=== PATIENT | female | born 1950 | race Caucasian/White ===

== ENCOUNTER 2020-11-21 13:20 | Emergency (ER) | payer OTHER, SELFPAY ==
[2020-11-21] VITALS (7 sets, daily range): BP systolic 137–174; BP diastolic 78–110; PULSE 61–81; RESP 14–15; TEMP 36.4; O2SAT 94–99
--- NOTE | ~2020-11-21 | CT_ITS ---
EXAMINATION: CTA brain carotid DATE: 11/21/2020 14:51 INDICATION: Dizziness. Cerebrovascular accident. TECHNIQUE: Computed tomographic angiography (CTA) of the head was performed without and with 100 mL O mnipaque-350 intravenous contrast. CTA of the neck was performed with intravenous contrast. Automated exposure control and iterative reconstruction technique were employed. The dose-length product was 1 755.60 mGy-cm. Maximum intensity projection and volume rendered 3D-reconstructions were created by maida martinez technologist on a separate workstation. COMPARISON: None. FINDINGS: HEAD CTA: There is no intracranial hemorrhage, acute infarction, or abnormal intracranial mass lesion . There is leftward displacement of septum pellucidum. The ventricles are not dilated. The orbits are normal. The paranasal sinuses are clear. The mastoid air cells are normal. The vertebral arteries ar e codominant. There is no significant stenosis of basilar artery or the posterior cerebral arteries. There is no significant stenosis of the intracranial internal carotid arteries or anterior or middle cerebral arteries. Anterior communicating artery is normal. The posterior communicating arteries are normal. There is no aneurysm. NECK CTA: There is no significant stenosis of the vertebral arteries. There is plaque in the proximal internal carotid arteries. There is 0% stenosis of the proximal right internal carotid artery relat lawrence to normal distal artery lumen diameter (NASCET criteria). There is 0% stenosis of the proximal le ft internal carotid artery relative to normal distal artery lumen diameter. There is severe cervical spondylosis. IMPRESSION: 1. Normal brain. 2. No aneurysm or significant intracranial internal stenosis. 3. 0% stenosis of the proximal internal carotid arteries relative to normal distal artery lumen diame ters (NASCET criteria). Reviewed, dictated and finalized at location A. IMPRESSION: 1. Normal brain. 2. No aneurysm or significant intracranial internal stenosis. 3. 0% stenosis of the proximal internal carotid arteries relative to normal dis leny artery lumen diameters (NASCET criteria).
--- NOTE | ~2020-11-21 | XR_ITS ---
EXAMINATION: XR chest 1V portable DATE: 11/21/2020 14:10 INDICATION: Chest pain TECHNIQUE: frontal view of the chest was obtained. COMPARISON: Chest radiograph dated 09/21/2013 FINDINGS: The lungs remain clear with no focal airspace opacities, pulmonary edema, pleural effusion or pneumot horax. The cardiomediastinal silhouette is normal. IMPRESSION: 1. No acute cardiopulmonary disease. Reviewed, dictated and finalized at location A.
--- NOTE | 2020-11-21 13:29 | ECG_ITS ---
Measurements Intervals [place] Rate: 63 P: 38 VT: 152 QRS: 7 QRSD: 87 T: 52 QT: 411 QTc: 421 Interpretive Statements SINUS RHYTHM BASELINE ARTIFACT- I, II, AVR, AVL, AVF NORMAL ECG Electronically Signed On 11-21-2020 15:50:42 CDT by Harrison Liao D.O.
--- NOTE | 2020-11-21 13:35 | ED.DIZZY ---
HPI - Dizziness General Chief Complaint: Dizziness Stated Complaint: dizziness, nausea, clammy Time Seen by Provider: 11/21/20 13:32 Source: patient Mode of arrival: ambulatory Limitations: no limitations History of Present Illness HPI Narrative: Patient is a 70-year-old female complaining of dizziness accompanied by nausea and diaphoresis that started approximately 30 minutes prior to arrival. Patient denies any speech or visual disturbance, focal weakness or numbness, chest pain, shortness of breath, abdominal pain, vomiting, diarrhea, fever or chills. Related Data Allergies Allergy/AdvReac Type Severity Reaction Status Date / Time propoxyphene Allergy Mild MAKES HER Verified 11/21/20 13:31 FEEL CRAZY codeine Allergy Unknown vomiting Verified 11/21/20 13:31 Review of Systems Review of Systems: All systems reviewed & are unremarkable except as noted in HPI and below Constitutional: Constitutional: Denies body ache(s), Denies chills, Denies excessive sweating, Denies fatigue, Denies fever(s), Denies headache(s), Denies lethargy, Denies malaise, Denies weakness and Denies weight loss Eyes: Eyes: Denies blurry vision, Denies change in vision and Denies loss of vision ENT: Denies dizziness, Denies ear discharge, Denies headache(s), Denies lip swelling, Denies epistaxis, Denies nasal congestion, Denies neck pain, Denies throat swelling and Denies tongue swelling Cardiovascular: Cardiovascular: Denies chest pain, Denies chest pain at rest, Denies chest pain with activity, Denies diaphoresis, Denies rapid heart rate, Denies edema, Denies irregular heart rhythm, Denies lightheadedness, Denies palpitations, Denies dyspnea and Denies dyspnea on exertion Respiratory: Respiratory: Denies chest congestion, Denies cough, Denies hemoptysis, Denies dyspnea and Denies dyspnea on exertion Gastrointestinal: Gastrointestinal: Denies abdominal pain, Denies melena, Denies hematochezia, Denies diarrhea, Denies nausea, Denies vomiting and Denies hematemesis Musculoskeletal: Musculoskeletal: Denies abnormal gait, Denies deformity, Denies joint swelling, Denies limited range of motion, Denies neck pain and Denies numbness Neurologic: Denies Abnormal speech present, Denies abnormal gait, Denies confusion, Denies headache(s), Denies focal weakness, Denies loss of vision, Denies numbness, Denies Other visual disturbances, Denies Sensory deficit (Neuro) and Denies weakness Psychiatric: Psychiatric: Denies confusion, Denies depression, Denies auditory hallucinations, Denies homicidal ideation and Denies suicidal ideation Endocrine: Endocrine: Denies cold intolerance, Denies excessive sweating, Denies fatigue, Denies heat intolerance and Denies palpitations Hematologic/Lymphatic: Hematologic/Lymphatic: Denies easy bleeding and Denies easy bruising Allergic/Immunologic: Allergic/Immunologic: Denies lip swelling, Denies throat swelling and Denies tongue swelling PMFSH Past Medical History Medical History Chronic bilateral low back pain without sciatica Social History Social History Smoking status: Never smoker Second hand tobacco smoke exposure: No Alcohol intake: current Drinks per week: 2 Substance use: never Substance use type: does not use Exam Const: General: cooperative, healthy appearing, comfortable, no acute distress, well developed, alert and awake; No confusion Orientation/consciousness: oriented to person, oriented to place, oriented to time, patient oriented x3 and No confusion Limitations: no limitations HENMT: Head: normal to inspection, normocephalic and atraumatic Ears: hearing grossly normal bilaterally, TM normal on the right and TM normal on the left General nose exam: Normal external nose present, Normal nares present and No nasal discharge present Face and sinus: normal facial exam Mouth: Yes Normal ora
[2020-11-21 13:52] LABS: Basophils Absolute Auto 0.1 K/mm3 (0.0-0.1); Basophils Percent Auto 0.7 % (0.2-1.2); Eosinophils Absolute Auto 0.4 K/mm3 (0-0.3); Eosinophils Percent Auto 4.1 % (0-4.4); Hematocrit 43.6 % (37.0-47.0); Hemoglobin 14.4 g/dL (12.0-15.0); Immature Granulocyte Absolute 0.08 K/mm3 (0.00-0.031); Immature Granulocyte Percent A 0.9 % (0-0.5); Lymphocytes Absolute Auto 2.34 K/mm3 (0.9-3.2); Lymphocytes Percent Auto 25.4 % (18.3-44.2); Mean Corpuscular Hemoglobin 28.9 pg (26-34); Mean Corpuscular Volume 87.6 fl (80-100); Monocytes Absolute Auto 0.8 K/mm3 (0.1-0.6); Monocytes Percent Auto 8.3 % (2.6-8.5); Neutrophils Absolute Auto 5.6 K/mm3 (1.3-6.7); Neutrophils Percent Auto 60.6 % (45.5-73.1); Platelet Count Result 295 k/mm3 (150-375); Red Blood Count 4.98 M/mm3 (4.2-5.4); Red Cell Distribution Width 13.4 % (11.5-14.5); White Blood Count 9.2 K/mm3 (4.5-10.0)
[2020-11-21 13:55] LABS: Anion Gap 10 mmol/L (8-16); Blood Urea Nitrogen 14 mg/dL (7-17); Calcium 9.5 mg/dL (8.4-10.2); Carbon Dioxide 28 mmol/L (22-30); Chloride 103 mmol/L (98-107); Estimated CRCL calculation 68 ml/min; Estimated Glomerular Filt Rate > 60; Glucose 117 mg/dL (65-105); Potassium 3.5 mmol/L (3.4-5.0); Sodium 141 mmol/L (137-145)
[2020-11-21] MEDS: SODIUM CHLORIDE 0.9% IV 1,000 ML 999 ML IV CONT (14:02)
[2020-11-21] MEDS: METOCLOPRAMIDE HCL INJ 10 MG/2 ML VIAL IV PUSH (14:02)
[2020-11-21] MEDS: MECLIZINE HCL 25 MG TABLET PO (14:02)
[2020-11-21] MEDS: FAMOTIDINE 20 MG/2 ML VIAL IV PUSH (14:02)
[2020-11-21 16:05] LABS: Troponin I < 0.012 ng/mL (0.000-0.034)
--- NOTE | 2020-11-21 16:15 | ED.DIZZY ---
HPI - Dizziness General Chief Complaint: Dizziness Stated Complaint: dizziness, nausea, clammy Time Seen by Provider: 11/21/20 13:32 Source: patient and RN notes reviewed Mode of arrival: ambulatory Limitations: no limitations History of Present Illness HPI Narrative: Patient is 70-year-old female who presents with acute onset of dizziness feeling diaphoretic and off-balance that occurred just prior to arrival came to the ER with a friend patient notes approximately 2 weeks ago had a similar occurrence patient denies any recent injury trauma illness. Patient notes on arrival that her symptoms have began to resolve patient on arrival does not appear distressed or uncomfortable Related Data Allergies Allergy/AdvReac Type Severity Reaction Status Date / Time propoxyphene Allergy Mild MAKES HER Verified 11/21/20 13:31 FEEL CRAZY codeine Allergy Unknown vomiting Verified 11/21/20 13:31 Review of Systems Review of Systems: All systems reviewed & are unremarkable except as noted in HPI and below PMFSH Past Medical History Medical History (Updated 11/21/20 @ 16:27 by Leonardo Steiner PA-C) Chronic bilateral low back pain without sciatica Social History Social History Smoking status: Never smoker Second hand tobacco smoke exposure: No Alcohol intake: current Drinks per week: 2 Substance use: never Substance use type: does not use Course Course Emergency Course: Patient in the room at this time in no distress aware of case findings treatment plan and diagnosis felt appropriate for outpatient reevaluation had resolution of symptoms has close follow-up with primary care feels comfortable to go home with this plan with ABCs and vital signs intact and stable felt appropriate for outpatient reevaluation patient was able to ambulate without symptoms or difficulty Vital Signs Vital signs: Vital Signs Temperature 97.5 F L 11/21/20 13:24 Pulse Rate 71 11/21/20 13:24 Respiratory Rate 14 11/21/20 13:24 Blood Pressure 137/84 11/21/20 13:24 Pulse Oximetry 99 11/21/20 13:24 Temperature 97.5 F L 11/21/20 13:24 Pulse Rate 81 11/21/20 15:08 Respiratory Rate 15 11/21/20 14:20 Blood Pressure 172/110 H 11/21/20 15:08 Pulse Oximetry 94 11/21/20 14:20 MDM - Dizziness MDM Narrative Medical decision making narrative: Patient's dizziness has resolved there are o focal neurological deficits on exam. Subarachnoid hemorrhage is felt to be unlikey at this time. There is no history of fever, and neck is supple without meningismus, making meningitis unlikely. No traumatic history or signs of trauma on exam. No risk factors for CVA, risk factors reviewed. Patient will be followed on an outpatient basis Lab Data Result diagrams: 11/21/20 13:35 11/21/20 13:35 Labs: Lab Results 11/21/20 11/21/20 11/21/20 Range/Units 13:35 13:35 13:35 WBC 9.2 (4.5-10.0) K/mm3 RBC 4.98 (4.2-5.4) M/mm3 Hgb 14.4 (12.0-15.0) g/dL Hct 43.6 (37.0-47.0) % MCV 87.6 (80-100) fl MCH 28.9 (26-34) pg MCHC 33.0 (32-36) g/dl RDW 13.4 (11.5-14.5) % Plt Count 295 (150-375) k/mm3 MPV 10.0 (7.4-10.4) fl Immature Gran % (Auto) 0.9 H (0-0.5) % Neut % (Auto) 60.6 (45.5-73.1) % Lymph % (Auto) 25.4 (18.3-44.2) % Polk % (Auto) 8.3 (2.6-8.5) % Eos % (Auto) 4.1 (0-4.4) % Baso % (Auto) 0.7 (0.2-1.2) % Lymph # (Auto) 2.34 (0.9-3.2) K/mm3 Polk # (Auto) 0.8 H (0.1-0.6) K/mm3 Eos # (Auto) 0.4 H (0-0.3) K/mm3 Baso # (Auto) 0.1 (0.0-0.1) K/mm3 Abs Immat Gran (auto) 0.08 H (0.00-0.031) K/mm3 Absolute Neuts (auto) 5.6 (1.3-6.7) K/mm3 Absolute Nucleated RBC 0.0 (0.0-0.012) K/mm3 Nucleated RBC % 0.0 (0.0-0.2) % Sodium 141 (137-145) mmol/L Potassium 3.5 (3.4-5.0) mmol/L Chloride 103 (98-107) mmol/L Carbon Dioxide 28 (22-30) mmol/
--- NOTE | 2020-11-21 16:15 | PC.NURSE ---
patient walked to bathroom without difficulty and in no distress.
== END 2020-11-21 16:50 | disposition home or self-care (01) ==
PROVIDERS: Emergency Provider Emergency Medicine; PCP Internal Medicine
DX: R42 Dizziness and giddiness (principal)
CPT/HCPCS: 36415; 70496; 70498; 71045; 80048; 84484; 85025; 93005; 96361; 96374; 96375; 99284; A9270; J2765; J7030; Q9967

== ENCOUNTER 2021-03-07 11:44 | Emergency (ER) | payer OTHER, SELFPAY ==
--- NOTE | 2021-03-07 12:48 | PC.NURSE ---
not in waiting area.
--- NOTE | 2021-03-07 13:34 | PC.NURSE ---
1314 was called multiple times by [employer] and this rn with no response from waiting area and no one seen in parking area.
== END 2021-03-07 13:34 | disposition left against medical advice (07) ==
PROVIDERS: Emergency Provider Internal Medicine Hematology & Oncology; PCP Internal Medicine
DX: Z53.21 Procedure and treatment not carried out due to patient leaving prior to being seen by health care provider (principal)
CPT/HCPCS: 99199

== ENCOUNTER 2021-03-07 12:36 | Outpatient (CLI) | payer OTHER, SELFPAY ==
[2021-03-07 13:28] LABS: SARS-CoV-2 RNA PCR Positive (Negative)
== END 2021-03-07 12:37 | disposition home or self-care (01) ==
PROVIDERS: PCP Internal Medicine; Visit Provider Internal Medicine
DX: U07.1 COVID-19 (principal); R68.89 Other general symptoms and signs
CPT/HCPCS: C9803; U0003; U0005

== ENCOUNTER 2021-03-08 11:45 | Outpatient (RCR) | payer OTHER, MEDICARE, SELFPAY ==
[2021-03-08] MEDS: ACETAMINOPHEN 325 MG TABLET 650 MG PO (14:15)
[2021-03-08] MEDS: FAMOTIDINE 20 MG TABLET PO (14:15)
[2021-03-08] MEDS: diphenhydrAMINE HCl CAP 25 MG CAPSULE PO (14:15)
[2021-03-08 14:25] VITALS: BP 154/70; PULSE 87; RESP 20; TEMP 36.9; O2SAT 96
[2021-03-08 15:40] VITALS: BP 142/70
== END 2021-03-08 16:30 | disposition home or self-care (01) ==
LOC: AMCINF 11:45
PROVIDERS: PCP Internal Medicine; Referring Provider Internal Medicine; Visit Provider Internal Medicine Hematology & Oncology
DX: Z23 Encounter for immunization (principal); U07.1 COVID-19
CPT/HCPCS: A9270; J7050; M0243

== ENCOUNTER → 2021-03-15 04:02 | Outpatient (CLI) | payer OTHER, SELFPAY ==
[2021-03-15 18:26] LABS: SARS-CoV-2 RNA PCR Negative
== END ==
PROVIDERS: PCP Internal Medicine; Visit Provider Internal Medicine
DX: Z20.822 Contact with and (suspected) exposure to COVID-19 (principal)
CPT/HCPCS: C9803; U0003; U0005

== ENCOUNTER 2022-01-11 10:32 | Outpatient (CLI) | payer OTHER, SELFPAY ==
--- NOTE | ~2022-01-11 | MM_ITS ---
EXAMINATION: MM screening ruddy BI w jazmin HISTORY: Screening mammogram TECHNIQUE: Craniocaudal and mediolateral oblique 3-D tomosynthesis images were obtained and synthetic 2-D images were generated. CAD analysis was submitted and interpreted. COMPARISON: 11/08/2016, 10/17/2015 bilateral screening mammogram examinations BREAST PARENCHYMAL COMPOSITION: The breasts are almost entirely fatty. FINDINGS: There is no evidence of suspicious mass, calcification, or architectural distortion to sugg est malignancy in either breast. There has been no suspicious interval change. IMPRESSION: 1. No mammographic evidence of malignancy. 2. Recommend routine screening mammography in one year. BI-RADS Category 1: Negative Reviewed, dictated and finalized at location A.
== END 2022-01-11 10:33 | disposition home or self-care (01) ==
LOC: ANHIMG 10:34
PROVIDERS: PCP Family Medicine; Visit Provider Family Medicine
DX: Z12.31 Encounter for screening mammogram for malignant neoplasm of breast (principal)
CPT/HCPCS: 77063; 77067

== ENCOUNTER 2022-01-29 10:29 | Outpatient (CLI) | payer OTHER, SELFPAY ==
[2022-01-29 11:40] LABS: Alanine Aminotransferase 20 U/L (6-35); Albumin Level 4.3 g/dL (3.5-5.1); Alkaline Phosphatase 90 U/L (38-126); Anion Gap 7 mmol/L (8-16); Aspartate Amino Transferase 27 U/L (14-36); Bilirubin,Total 0.5 mg/dL (0.2-1.3); Blood Urea Nitrogen 14 mg/dL (7-17); Calcium 9.5 mg/dL (8.4-10.2); Carbon Dioxide 33 mmol/L (22-30); Chloride 97 mmol/L (98-107); Cholesterol 184 mg/dL (0-200); Estimated Glomerular Filt Rate > 60; Glucose 110 mg/dL (65-110); HDL Direct 55 mg/dL; Potassium 4.6 mmol/L (3.4-5.0); Sodium 137 mmol/L (137-145); Triglycerides 139 mg/dL (<150)
[2022-01-29 11:51] LABS: LDL Cholesterol Direct 99 mg/dL
[2022-01-29 17:25] LABS: Thyroid Stimulating Hormone Reflex 0.869 uIU/mL (0.465-4.68)
== END 2022-01-29 10:30 | disposition home or self-care (01) ==
PROVIDERS: PCP Family Medicine; Visit Provider Family Medicine
DX: E78.5 Hyperlipidemia, unspecified (principal); E03.9 Hypothyroidism, unspecified; R73.01 Impaired fasting glucose
CPT/HCPCS: 36415; 80053; 80061; 84443

== ENCOUNTER 2022-02-14 07:46 | Outpatient (CLI) | payer OTHER, SELFPAY ==
--- NOTE | 2022-03-19 17:39 | WPDSLEEPSTUD ---
Sleep Study Date of Study: 02/14/22 Ordering Provider: Hubert Kim DO Interpreting Physician: Scarlett Herrera MD Sleep Study Type: Polysomnogram Height: 1.68 m Weight: 107.955 kg Body Mass Index: 38.4 Neck Circumference (inches): 17.5 [place]: 5 Reason for Sleep Study Fatigue, increased weight gain Sleep History Keely Barrett is a 71-year-old woman with complaints of increasing daytime fatigue, loud snoring and weight gain. She did not complete a sleep questionnaire, so the sleep history is limited. She took a 2 hour nap on the day of this study. She takes medication to help her get to sleep every night. [facility] Past Medical History Medical History (Updated 03/19/22 @ 19:03 by Scarlett Herrera MD) Chronic bilateral low back pain without sciatica DDD (degenerative disc disease), lumbosacral Fatigue Hyperlipidemia Hypothyroidism (acquired) Prediabetes Social History Social History Smoking status: Never smoker Second hand tobacco smoke exposure: No Alcohol intake: current Drinks per week: 2 Alcohol use details: mixed drinks Substance use: never Substance use type: does not use Spiritual care concerns: No Medications Home Medications Medication Instructions Recorded Confirmed Type loratadine 10 mg tablet (Claritin) 10 mg PO DAILY PRN allergy 11/21/20 02/27/22 Rx symptoms #10 tabs meclizine 25 mg tablet 25 mg PO TID PRN dizziness #7 tabs 11/21/20 05/27/21 Rx prochlorperazine maleate 10 mg 10 mg PO Q8H PRN nausea and 11/21/20 05/27/21 Rx tablet (Compazine) vomiting #7 tabs levothyroxine 125 mcg tablet 125 mcg PO DAILY #90 tabs 01/09/21 02/27/22 Rx omeprazole 20 mg capsule,delayed 20 mg PO DAILY #90 caps 01/09/21 02/27/22 Rx release furosemide 20 mg tablet 20 mg PO QAM #90 tabs 04/12/21 02/27/22 Rx simvastatin 20 mg tablet 20 mg PO DAILY #90 tabs 04/12/21 02/27/22 Rx tramadol 50 mg tablet 50 mg PO Q6H PRN pain #30 tabs 05/27/21 05/27/21 Rx cyclobenzaprine 10 mg tablet 10 mg PO QAM PRN muscle spasm #30 03/17/22 Rx tabs Sleep Procedure This test was performed using the [employer] multiple channel system including EOG, EEG, submental EMG, EKG, nasal and oral airflow using thermistors and nasal pressure sensors, chest and abdominal belts for body position data, and pulse oximetry. Video monitoring was also performed. The study was scored using CMS guidelines. No sleep aid was used. She had a difficult time falling asleep and staying asleep. She felt hot and uncomfortable. She fell asleep in earnest around 4:30 am, leaving not enough time to accrue diagnostic data and start CPAP. She had long episodes of wake during the nights, with one fragmented REM episode at the end of the night. Sleep Architecture The recording time is 408.2 minutes. Total sleep time is 162 minutes. Sleep efficiency is low 39.7%. Sleep latency 79.2 minutes. REM latency is 295.5 minutes. Patient spent 167 minutes awake after sleep onset. Sleep architecture showed 12.3% stage I sleep, 70.4% stage II sleep, 0.3% stage III sleep and 9% stage REM. Respiratory Analysis The apnea hypopnea index for the night was 66.7. Supine index is 82.5, nonsupine index 64.9. In nonsupine REM there were 14 obstructive apneas, 5 central apneas and 1 hypopnea, AHI in nonsupine REM was 82.8. In supine non-REM there were 7 obstructive apneas and 15 hypopneas, AHI is 82.5. In nonsupine non-REM there were 37 obstructive apneas, 4 central apneas and 97 hypopneas for an index of 63. The central apnea index is 3.3 associated with 9 central events. Arousals There were a total of 139 arousals for an index of 51.5. There were 98 spontaneous arousals for an index of 36.3. There were no arousals dueto periodic limb movements or isolated limb movements. Periodic Limb Movements There were no periodic limb movements or isolated limb movements. Oximetry Data The lowest sat
[2022-03-19 19:26] VITALS: BMI 38.4
== END 2022-02-15 06:31 | disposition home or self-care (01) ==
LOC: ANHCSM 07:48
PROVIDERS: PCP Family Medicine; Visit Provider Family Medicine
DX: G47.33 Obstructive sleep apnea (adult) (pediatric) (principal)
CPT/HCPCS: 95810

== ENCOUNTER 2022-05-02 07:28 | Outpatient (CLI) | payer OTHER, SELFPAY ==
--- NOTE | 2022-06-02 12:10 | WPDSLEEPSTUD ---
Sleep Study Date of Study: 05/02/22 Ordering Provider: Hubert Kim DO Interpreting Physician: Laine Brewer DO Sleep Study Type: Split Polysomnogram Height: 1.65 m Weight: 108.862 kg Body Mass Index: 39.9 Neck Circumference (inches): 17.5 [place]: 5 Reason for Sleep Study The patient had a home sleep test on 02/14/2022 that showed an overall AHI of 66.7. It was recommended that the patient have an in-lab PAP Titration study. Sleep History Keely Barrett is a 72-year-old woman with complaints of increasing daytime fatigue, loud snoring and weight gain.? She did not complete a sleep questionnaire, so the sleep history is limited. She took a 2 hour nap on the day of this study. She takes medication to help her get to sleep every night. [facility] Past Medical History Medical History Chronic bilateral low back pain without sciatica DDD (degenerative disc disease), lumbosacral Fatigue Hyperlipidemia Hypothyroidism (acquired) Prediabetes Social History Social History Smoking status: Never smoker Second hand tobacco smoke exposure: No Alcohol intake: current Drinks per week: 2 Alcohol use details: mixed drinks Substance use: never Substance use type: does not use Lack of Transportation: No Lack of Food: Never True Current Housing: I Have Housing Concerned About Future Housing: No Difficulty Paying Gas/Electric Bills: No Difficulty Paying for Meds: No Currently Unemployed: No Difficulty w/ Childcare or Family Care: No Spiritual care concerns: No Medications Home Medications Medication Instructions Recorded Confirmed Type loratadine 10 mg tablet (Claritin) 10 mg PO DAILY PRN allergy 11/21/20 02/27/22 Rx symptoms #10 tabs furosemide 20 mg tablet 20 mg PO QAM #90 tabs 04/12/21 02/27/22 Rx simvastatin 20 mg tablet 20 mg PO DAILY #90 tabs 04/12/21 02/27/22 Rx levothyroxine 125 mcg tablet 125 mcg PO DAILY #90 tabs 03/31/22 Rx omeprazole 20 mg capsule,delayed 20 mg PO DAILY #90 caps 03/31/22 Rx release cyclobenzaprine 10 mg tablet 10 mg PO QAM PRN muscle spasm #30 05/29/22 Rx tabs tramadol 50 mg tablet 50 mg PO Q6H PRN pain #30 tabs 06/02/22 06/02/22 Rx Sleep Procedure This test was performed using the [employer] multiple channel system including EOG, EEG, submental EMG, EKG, nasal and oral airflow using thermistors and nasal pressure sensors, chest and abdominal belts for body position data, and pulse oximetry. Video monitoring was also performed. The study was scored using CMS guidelines. Sleep Architecture Diagnostic: The patient had a total recording time of 185.7 minutes and total sleep time of 150 minutes. The sleep efficiency was 80.8%. Sleep latency was 7.2 minutes. The patient did not achieve REM sleep during this portion of the study. The patient had 20 awakenings. The patient spent 7 minutes, 4.7% of total sleep time in stage N1. The patient spent 132.5 minutes, 88.3% of total sleep time stage N2. The patient spent 10.5 minutes, 7% of total sleep time stage N3. The patient spent 0 minutes in REM sleep. Treatment: The patient had a total recording time of 250.5 minutes and total sleep time of 218 minutes. The sleep efficiency was 87%. Sleep latency was 7 minutes and REM latency was 41 minutes. The patient had 21 awakenings. The patient spent 11 minutes, 5% of total sleep time in stage N1. The patient spent 125.5 minutes, 57.6% of total sleep time stage N2. The patient spent 12.5 minutes, 5.7% of total sleep time stage N3. The patient spent 69 minutes, 31.7% of total sleep time in REM sleep. Respiratory Analysis Diagnostic: The patient had an overall AHI of 85.2 and a central apnea index of 0. The supine AHI was 75 and the non-supine AHI was 85.5. The patient had 67 obstructive apneas and 146 hypopneas. No Benjamin-Aguillon respirations
[2022-06-02 12:14] VITALS: BMI 39.9
== END 2022-05-03 06:41 | disposition home or self-care (01) ==
PROVIDERS: PCP Family Medicine; Visit Provider Family Medicine
DX: G47.33 Obstructive sleep apnea (adult) (pediatric) (principal)
CPT/HCPCS: 95811

== ENCOUNTER 2022-12-01 10:58 | Outpatient (CLI) | payer OTHER, SELFPAY ==
[2022-12-01 14:44] LABS: Alanine Aminotransferase 23 U/L (6-35); Albumin Level 4.3 g/dL (3.5-5.1); Alkaline Phosphatase 108 U/L (38-126); Aspartate Amino Transferase 30 U/L (14-36); Bilirubin,Total 0.5 mg/dL (0.2-1.3); Blood Urea Nitrogen 15 mg/dL (7-17); Calcium 9.1 mg/dL (8.4-10.2); Carbon Dioxide > 40 mmol/L (22-30); Chloride 99 mmol/L (98-107); Cholesterol 205 mg/dL (0-200); Estimated Glomerular Filt Rate > 60; Glucose 103 mg/dL (65-110); HDL Direct 58 mg/dL; Potassium 4.1 mmol/L (3.4-5.0); Sodium 138 mmol/L (137-145); Triglycerides 199 mg/dL (<150)
[2022-12-01 14:49] LABS: LDL Cholesterol Direct 111 mg/dL
[2022-12-01 16:32] LABS: Hemoglobin A1C 5.9 % (<5.7)
== END 2022-12-01 10:59 | disposition home or self-care (01) ==
LOC: ANHGOSHLAB 10:59
PROVIDERS: PCP Family Medicine; Visit Provider Family Medicine
DX: E78.5 Hyperlipidemia, unspecified (principal); Z13.220 Encounter for screening for lipoid disorders; Z13.228 Encounter for screening for other metabolic disorders; E03.9 Hypothyroidism, unspecified; Z13.29 Encounter for screening for other suspected endocrine disorder; E11.9 Type 2 diabetes mellitus without complications
CPT/HCPCS: 36415; 80053; 80061; 83036; 84443

== ENCOUNTER 2024-01-14 09:46 | Outpatient (CLI) | payer OTHER, SELFPAY ==
[2024-01-14 19:40] LABS: Alanine Aminotransferase 22 U/L (6-35); Albumin Level 4.5 g/dL (3.5-5.1); Alkaline Phosphatase 99 U/L (38-126); Anion Gap 7 mmol/L (4-12); Aspartate Amino Transferase 33 U/L (14-36); Bilirubin,Total 0.6 mg/dL (0.2-1.3); Blood Urea Nitrogen 14 mg/dL (7-17); Calcium 9.4 mg/dL (8.4-10.2); Carbon Dioxide 36 mmol/L (22-30); Chloride 96 mmol/L (98-107); Cholesterol 214 mg/dL (0-200); Estimated Glomerular Filt Rate > 60; Glucose 107 mg/dL (65-110); HDL Direct 50 mg/dL; Potassium 3.8 mmol/L (3.4-5.0); Sodium 139 mmol/L (137-145); Triglycerides 202 mg/dL (<150)
[2024-01-14 19:45] LABS: Free T4 Free Thyroxine 1.39 ng/mL (0.78-2.19)
[2024-01-14 19:50] LABS: LDL Cholesterol Direct 121 mg/dL
[2024-01-14 21:23] LABS: Hemoglobin A1C 6.1 % (<5.7)
== END 2024-01-14 09:47 | disposition home or self-care (01) ==
PROVIDERS: PCP Family Medicine; Visit Provider Family Medicine
DX: E78.5 Hyperlipidemia, unspecified (principal); E03.9 Hypothyroidism, unspecified; I10 Essential (primary) hypertension; R73.03 Prediabetes; Z13.228 Encounter for screening for other metabolic disorders
CPT/HCPCS: 36415; 80053; 80061; 83036; 84439; 84443

== ENCOUNTER 2024-01-14 09:55 | Outpatient (CLI) | payer OTHER, SELFPAY ==
--- NOTE | ~2024-01-14 | XR_ITS ---
XR hip RT min 2V Ordering provider: Hubert Kim DO History: . M25.551 - Pain in right hip . Comparison: None. FINDINGS: BONES: No acute fracture or dislocation. HIP JOINT SPACES: Right hip moderate osteoarthritic changes. SACROILIAC JOINT SPACES/LUMBAR SPINE: The sacroiliac joint spaces are normal. Mild degenerative navarrete es of the visualized lower lumbar spine. PUBIC SYMPHYSIS: Normal. SOFT TISSUES: Normal. IMPRESSION: No acute osseous abnormality pelvis and right hip. Reviewed, dictated and finalized at location A.
== END 2024-01-14 09:56 ==
LOC: GOSHIMG 09:56
PROVIDERS: PCP Family Medicine; Visit Provider Family Medicine
DX: M25.551 Pain in right hip (principal)
CPT/HCPCS: 73502

== ENCOUNTER 2024-03-04 07:13 | Outpatient (CLI) | payer OTHER, SELFPAY ==
--- NOTE | ~2024-03-04 | MM_ITS ---
EXAMINATION: MM screening ruddy BI w jazmin HISTORY: Screening mammogram TECHNIQUE: Craniocaudal and mediolateral oblique 3-D tomosynthesis images were obtained and synthetic 2-D images were generated. CAD analysis was submitted and interpreted. COMPARISON: 01/11/2022, 10/22/2016 BREAST PARENCHYMAL COMPOSITION:Not Dense. The breasts are almost entirely fatty FINDINGS: No suspicious mass, calcification, or architectural distortion are identified in either ger ast to suggest malignancy. There has been no suspicious interval change. IMPRESSION: No mammographic evidence of malignancy. Recommend routine screening mammography in one year. BI-RADS Category 1: Negative Reviewed, dictated and finalized at location .
== END 2024-03-04 07:14 | disposition home or self-care (01) ==
LOC: ANHIMG 07:16
PROVIDERS: PCP Family Medicine; Visit Provider Family Medicine
DX: Z12.31 Encounter for screening mammogram for malignant neoplasm of breast (principal)
CPT/HCPCS: 77063; 77067

== ENCOUNTER 2024-08-15 08:50 | Outpatient (CLI) | payer OTHER, SELFPAY ==
--- NOTE | ~2024-08-15 | DEXA_ITS ---
Bone Density Report Name: JULI DAVIDSON Age: 74 Sex: Female Ethnicity: White Date of : 1950 Indication: hyperparathyroidism; hysterectomy; Referring Provider: KEYLA MORRISON Study: Bone densitometry was performed. Exam Date: August 15, 2024 Accession number: [id number] Bone Density: Region BMD T-score Z-score Classification AP Spine(L1-L4) 0.855 -1.7 0.5 Osteopenia Femoral Neck (Left) 0.696 -1.4 0.6 Osteopenia Total Hip (Left) 0.936 -0.1 1.6 Normal Femoral Neck (Right) 0.709 -1.3 0.7 Osteopenia Total Hip (Right) 0.965 0.2 1.9 Normal Femoral Neck Mean 0.703 -1.3 0.7 Osteopenia Total Hip Mean 0.950 0.1 1.7 Normal World Health Organization criteria for BMD impression classify patients as: Normal (T-score at or above -1.0), Osteopenia (T-score between -1.0 and -2.5), or Osteoporosis (T-score at or below -2.5). 10-year Fracture Risk(1): Major Osteoporotic Fracture 9.4% Hip Fracture 1.4% Reported Risk Factors: [place] (), Neck BMD=0.696, BMI=35.6 (1) FRAX(R) Version 3.08. Fracture probability calculated for an untreated patient. Fracture probability may be lower if the patient has received treatment. Clinical Information Provided by Patient: Has used the following medications: Vitamin D Has the following medical conditions: Hyperparathyroidism, Hysterectomy Patient maximum height was 67 Menopause Age: 51 No regular weight bearing exercise Does not regularly consume dairy products Drinks caffeinated beverages Onset of menses at age 18 Number of children 0 Impression: The patient has low bone mass, based on the Total Spine T-score. Discussion: BONE DENSITY IS LOW AT ONE OR MORE SKELETAL SITES. This patient's lowest T-score is low at one or more skeletal sites. It meets the World Health Organization's (WHO) criteria for ?low bone mass? (T-score between -1.0 and -2.5). The patient's 10-year risk of fracture as calculated by FRAX is less than the threshold where pharmacological therapy is recommended by the National Osteoporosis Foundation (NOF). However, all treatment decisions require clinical judgment and consideration of individual patient factors, including patient preferences, comorbidities, previous drug use, risk factors not captured in the FRAX model (e.g., frailty, falls, vitamin D deficiency, increased bone turnover, interval significant decline in bone density) and possible under or overestimation of fracture risk by FRAX. The patient should follow a healthful lifestyle (good nutrition with adequate calcium and vitamin D, and appropriate weight-bearing exercise). Follow-Up: Consider repeating this study in 2 to 3 years to reassess this patient's status, or sooner if there is some new clinical indication. Reported by: SHAD on 08/15/2024 9:12:00 AM. Reviewed, dictated and finalized at location A.
== END 2024-08-15 08:51 | disposition home or self-care (01) ==
LOC: CHSIMG 08:52
PROVIDERS: PCP Nurse Practitioner Family; Visit Provider Nurse Practitioner Family
DX: Z78.0 Asymptomatic menopausal state (principal); M85.89 Other specified disorders of bone density and structure, multiple sites
CPT/HCPCS: 77080

== ENCOUNTER 2024-12-27 09:22 | Outpatient (CLI) | payer OTHER, SELFPAY ==
[2024-12-27 09:53] LABS: Hematocrit 43.8 % (37.0-47.0); Hemoglobin 14.1 g/dL (12.0-15.0); Mean Corpuscular HGB Conc 32.2 g/dl (32-36); Mean Corpuscular Hemoglobin 29.4 pg (26-34); Mean Corpuscular Volume 91.3 fl (80-100); Platelet Count Result 261 k/mm3 (150-375); Red Blood Count 4.80 M/mm3 (4.2-5.4); White Blood Count 7.2 K/mm3 (4.5-10.0)
[2024-12-27 09:59] LABS: Alanine Aminotransferase 17 U/L (6-35); Albumin Level 4.5 g/dL (3.5-5.1); Alkaline Phosphatase 77 U/L (38-126); Anion Gap 8 mmol/L (4-12); Aspartate Amino Transferase 26 U/L (14-36); Bilirubin,Total 0.4 mg/dL (0.2-1.3); Blood Urea Nitrogen 22 mg/dL (7-17); Calcium 10.1 mg/dL (8.4-10.2); Carbon Dioxide 30 mmol/L (22-30); Chloride 100 mmol/L (98-107); Cholesterol 178 mg/dL (0-200); Estimated Glomerular Filt Rate > 60; Glucose 103 mg/dL (65-110); HDL Direct 56 mg/dL; Potassium 5.1 mmol/L (3.4-5.0); Sodium 138 mmol/L (137-145); Total Protein 7.3 g/dL (6.3-8.2); Triglycerides 105 mg/dL (<150)
[2024-12-27 10:09] LABS: Hemoglobin A1C 5.2 % (<5.7)
[2024-12-27 11:00] LABS: Thyroid Stimulating Hormone Reflex 0.230 uIU/mL (0.465-4.68)
[2024-12-27 11:32] LABS: Free T4 Free Thyroxine Reflex 1.76 ng/dL (0.78-2.19)
[2024-12-27 12:14] LABS: Total Triiodothyronine (T3) 1.19 NG/ML (0.82-1.58)
== END 2024-12-27 09:23 | disposition home or self-care (01) ==
PROVIDERS: PCP Nurse Practitioner Family; Visit Provider Nurse Practitioner Family
DX: E78.00 Pure hypercholesterolemia, unspecified (principal); R73.03 Prediabetes; E03.9 Hypothyroidism, unspecified; E66.9 Obesity, unspecified; Z68.36 Body mass index [BMI] 36.0-36.9, adult; Z78.0 Asymptomatic menopausal state; M25.50 Pain in unspecified joint; G47.33 Obstructive sleep apnea (adult) (pediatric); Z79.899 Other long term (current) drug therapy; E78.5 Hyperlipidemia, unspecified; M51.379 Other intervertebral disc degeneration, lumbosacral region without mention of lumbar back pain or lower extremity pain
CPT/HCPCS: 36415; 80053; 80061; 82306; 83036; 84439; 84443; 84480; 85027

== ENCOUNTER 2025-02-10 08:08 | Outpatient (CLI) | payer OTHER, SELFPAY ==
[2025-02-10 08:43] LABS: Potassium 4.3 mmol/L (3.4-5.0)
[2025-02-10 09:57] LABS: Thyroid Stimulating Hormone Reflex 2.280 uIU/mL (0.465-4.68)
== END 2025-02-10 08:09 | disposition home or self-care (01) ==
LOC: ANHLAB 08:10
PROVIDERS: PCP Nurse Practitioner Family; Visit Provider Nurse Practitioner Family
DX: E87.5 Hyperkalemia (principal); R79.89 Other specified abnormal findings of blood chemistry; E03.9 Hypothyroidism, unspecified
CPT/HCPCS: 36415; 84132; 84443

== ENCOUNTER 2025-05-15 14:46 | Outpatient (CLI) | payer OTHER, SELFPAY ==
--- NOTE | ~2025-05-15 | MM_ITS ---
EXAMINATION: MM screening ruddy BI w jazmin HISTORY: Screening TECHNIQUE: Craniocaudal and mediolateral oblique 3-D tomosynthesis images were obtained and synthetic 2-D images were generated. CAD analysis was submitted and interpreted. COMPARISON: Comparison to multiple prior studies sequentially, with oldest reviewed study dated 10/17/2015. BREAST PARENCHYMAL COMPOSITION: Not Dense: The breasts are almost entirely fatty. FINDINGS: There is no evidence of suspicious mass, calcification, or architectural distortion to suggest malignancy in either breast. There has been no suspicious interval change. IMPRESSION: 1. No mammographic evidence of malignancy. 2. Recommend routine screening mammography in one year. BI-RADS Category 1: Negative Reviewed, dictated and finalized at location O. KSMITH APPRENTICE
== END 2025-05-15 14:47 | disposition home or self-care (01) ==
LOC: ANHFOHIMG 14:47
PROVIDERS: PCP Nurse Practitioner Family; Visit Provider Nurse Practitioner Family
DX: Z12.31 Encounter for screening mammogram for malignant neoplasm of breast (principal)
CPT/HCPCS: 77063; 77067